=== PATIENT | male | born 1985 | race Caucasian/White ===

== ENCOUNTER 2018-01-11 16:04 | Emergency (ER) | payer OTHER ==
[2018-01-11 16:27] VITALS: BP 127/66; PULSE 77; RESP 18; TEMP 99
--- NOTE | 2018-01-11 16:43 | XR ---
EXAMINATION TYPE: XR ankle complete RT DATE OF EXAM: 01/11/2018 CLINICAL HISTORY: Lateral right ankle pain and swelling after the patient rolled his ankle. TECHNIQUE: Frontal, lateral and oblique images of the right ankle are obtained. COMPARISON: None. FINDINGS: There is no acute fracture/dislocation evident in the right ankle. The ankle mortise appe ars within normal limits. There is focal soft tissue swelling overlying the lateral malleolus. Small anterior enthesophyte is noted. IMPRESSION: Prominent soft tissue swelling over the lateral right malleolus with no evidence of acute fracture or dislocation. If there is persistent pain MRI could be performed to evaluate for tendon a nd ligamentous injury.
[2018-01-11] MEDS ORDERED: KETOROLAC 30 MG/ML 1 ML VIAL IM STA (17:45)
--- NOTE | 2018-01-11 17:48 | ED ---
General Adult HPI - General Chief complaint: Extremity Injury, Lower Stated complaint: Ankle Injury Time Seen by Provider: 01/11/18 17:40 Source: patient Mode of arrival: wheelchair Limitations: no limitations - History of Present Illness Initial comments: 32-year-old male presents to the emergency department for a chief complaint of right ankle pain. Patient states he was playing baseball when he slid and rolled his ankle. Patient states his pain is moderate. He has trouble bearing weight on the ankle. Patient denies pain in the foot or the knee. Patient has full range of motion of the foot and the knee. Patient denies hitting his head in this injury. Patient states he has not taken ibuprofen or anything to decrease the inflammation. - Related Data Previous Rx's Medication Instructions Recorded Ibuprofen [Motrin] 600 mg PO Q6HR PRN #30 tab 07/02/14 Acetaminophen-Codeine 300-30mg 1 tab PO Q8H PRN #10 tablet 01/11/18 [Tylenol #3] Ibuprofen [Motrin] 800 mg PO Q8HR PRN #20 tab 01/11/18 Allergies Allergy/AdvReac Type Severity Reaction Status Date / Time No Known Allergies Allergy Verified 07/02/14 19:35 Review of Systems ROS Statement: Those systems with pertinent positive or pertinent negative responses have been documented in the HPI. ROS Other: All systems not noted in ROS Statement are negative. Past Medical History Past Medical History: No Reported History History of Any Multi-Drug Resistant Organisms: None Reported Past Surgical History: No Surgical Hx Reported Past Psychological History: No Psychological Hx Reported Smoking Status: Current every day smoker Past Alcohol Use History: None Reported, Occasional Past Drug Use History: None Reported General Exam Limitations: no limitations Head exam: Present: atraumatic, normocephalic, normal inspection Eye exam: Present: normal appearance, PERRL, EOMI. Absent: scleral icterus, conjunctival injection, periorbital swelling ENT exam: Present: normal exam, mucous membranes moist Respiratory exam: Present: normal lung sounds bilaterally. Absent: respiratory distress, wheezes, rales, rhonchi, stridor Cardiovascular Exam: Present: regular rate, normal rhythm, normal heart sounds. Absent: systolic murmur, diastolic murmur, rubs, gallop, clicks Extremities exam: Present: normal capillary refill, other (Pedal pulses 2+ in the right ankle). Absent: full ROM (Limited range of motion of right ankle), tenderness (Tenderness to the right ankle), pedal edema, joint swelling, calf tenderness Course Vital Signs 01/11/18 16:24 Temperature 99.0 F Pulse Rate 77 Respiratory 18 Rate Blood Pressure 127/66 O2 Sat by Pulse 98 Oximetry Medical Decision Making - Medical Decision Making 32-year-old male presents to the emergency department with a chief complaint of right ankle injury. Patient states he rolled his ankle while he was playing softball. Patient is now having trouble bearing weight on the ankle. He has 2 + pedal pulses and less than 2 second capillary refill in the right extremity. He states he can deal sensation in the right foot and denies pain in the knee or foot. X-ray was ordered which showed no acute fracture or dislocation ankle Gabriela's appears within normal limits. There is soft tissue swelling overlying the lateral malleolus. Radiologist recommends MRI if pain is persistent to evaluate for tendon or ligament injury. Patient will be given a shot of Toradol in the emergency department to decrease inflammation. He is directed to take ibuprofen for pain relief and anti-inflammatory effects. He will wait till tomorrow to start ibuprofen due to the administration of Toradol. He will be prescribed a prescription of Tylenol 3 if pain is severe and ibuprofen is not helping. Patient will be directed to follow-up with orthopedics in one to 2 days. Patient also requests ibuprofen 800s as his states "it will hurt his stomach less than taking four 200s." Patient is also educated about [place]. Disposition Clinical Impression: Ankle pain Disposition: HOME SELF-CARE Condition: Good Instructions: Ankle Sprain (ED) Additional Instructions: Please return to the emergency department if pain or symptoms worsen. Please follow-up with orthopedics in one to 2 days. Please take ibuprofen for pain relief and anti-inflammatory effects. Please use Tylenol 3 if pain is severe and ibuprofen isn't helping. Prescriptions: Acetaminophen-Codeine 300-30mg [Tylenol #3] 1 tab PO Q8H PRN #10 tablet PRN Reason: Pain Ibuprofen [Motrin] 800 mg PO Q8HR PRN #20 tab PRN Reason: Pain Referrals: None,Stated [Primary Care Provider] - 1-2 days Елена Pandya, PAC [PHYSICIAN ALGOLOGY TEACHER] - 1-2 days Time of Disposition: 17:48
== END 2018-01-11 18:06 | disposition home or self-care (01) ==
LOC: EC 16:04
DX: M25.571 Pain in right ankle and joints of right foot (principal); F17.200 Nicotine dependence, unspecified, uncomplicated; X50.9XXA Other and unspecified overexertion or strenuous movements or postures, initial encounter; Y93.64 Activity, baseball
CPT/HCPCS: 73610; 99283; 96372; J1885

== ENCOUNTER 2018-06-05 06:56 | Emergency (ER) | payer OTHER ==
[2018-06-05 07:08] VITALS: BP 134/78; PULSE 95; RESP 18; TEMP 98.2
[2018-06-05] MEDS ORDERED: KETOROLAC 60 MG/2 ML VIAL IM STA (07:17)
[2018-06-05] MEDS ORDERED: ORPHENADRINE 30 MG/ML 2 ML VIAL IM STA (07:17)
--- NOTE | 2018-06-05 07:22 | ED ---
General Adult HPI - General Chief complaint: Back Pain/Injury Stated complaint: LT side injury Time Seen by Provider: 06/05/18 07:00 Source: patient, RN notes reviewed Mode of arrival: ambulatory Limitations: no limitations - History of Present Illness Initial comments: This is a 33-year-old male who presents emergency Department complaining of back pain. Patient states he started having pain after he lifted a 20 pound gear work and move the wrong way. Patient states it's on the left mid back lateral of the spine. Patient denies any numbness weakness. Patient states when he sits still it does not hurt but when he moves or twists it hurts. Patient states pain is also reproducible with pressure. Patient denies any direct blow or trauma to the area. Patient denies any swelling redness or rashes. Patient denies any recent fever chills - Related Data Previous Rx's Medication Instructions Recorded Ibuprofen [Motrin] 600 mg PO Q6HR PRN #30 tab 07/02/14 Acetaminophen-Codeine 300-30mg 1 tab PO Q8H PRN #10 tablet 01/11/18 [Tylenol #3] Ibuprofen [Motrin] 800 mg PO Q8HR PRN #20 tab 01/11/18 Cyclobenzaprine [Flexeril] 10 mg PO TID #20 tab 06/05/18 Ibuprofen [Motrin] 600 mg PO Q6HR PRN #20 tab 06/05/18 Allergies Allergy/AdvReac Type Severity Reaction Status Date / Time No Known Allergies Allergy Verified 06/05/18 07:08 Review of Systems ROS Statement: Those systems with pertinent positive or pertinent negative responses have been documented in the HPI. ROS Other: All systems not noted in ROS Statement are negative. Past Medical History Past Medical History: No Reported History History of Any Multi-Drug Resistant Organisms: None Reported Past Surgical History: No Surgical Hx Reported Past Psychological History: No Psychological Hx Reported Smoking Status: Current every day smoker Past Alcohol Use History: Occasional Past Drug Use History: None Reported General Exam - General Exam Comments Initial Comments: GENERAL: Patient is well-developed and well-nourished. Patient is nontoxic and well- hydrated and is in mild distress. ENT: Neck is soft and supple. No significant lymphadenopathy is noted. Oropharynx is clear. Moist mucous membranes. Neck has full range of motion without eliciting any pain. EYES: The sclera were anicteric and conjunctiva were pink and moist. Extraocular movements were intact and pupils were equal round and reactive to light. Eyelids were unremarkable. PULMONARY: Unlabored respirations. Good breath sounds bilaterally. No audible rales rhonchi or wheezing was noted. CARDIOVASCULAR: There is a regular rate and rhythm without any murmurs gallops or rubs. SKIN: Skin is clear with no lesions or rashes and otherwise unremarkable. NEUROLOGIC: Patient is alert and oriented x3. Cranial nerves II through XII are grossly intact. Motor and sensory are also intact. Normal speech, volume and content. Symmetrical smile. MUSCULOSKELETAL: Normal extremities with adequate strength and full range of motion. Patient has tenderness just lateral to the spine on the left in the muscular region of the latissimus dorsi. PSYCHIATRIC: Normal psychiatric evaluation. Normal interpersonal interactions appears functionally intact in deals appropriately with others. No signs of depression. No signs of anxiety. Limitations: no limitations Course Vital Signs 06/05/18 07:06 Temperature 98.2 F Pulse Rate 95 Respiratory 18 Rate Blood Pressure 134/78 O2 Sat by Pulse 99 Oximetry Disposition Clinical Impression: Mid back pain Disposition: HOME SELF-CARE Condition: Good Instructions: Back Pain (ED) Prescriptions: Cyclobenzaprine [Flexeril] 10 mg PO TID #20 tab Ibuprofen [Motrin] 600 mg PO Q6HR PRN #20 tab PRN Reason: For pain Is patient prescribed a controlled substance at d/c from ED?: No Referrals: Mukesh Morin MD [Primary Care Provider] - 1-2 days Time of Disposition: 07:21
== END 2018-06-05 07:41 | disposition home or self-care (01) ==
LOC: EC 06:56
DX: M54.9 Dorsalgia, unspecified (principal); F17.200 Nicotine dependence, unspecified, uncomplicated
CPT/HCPCS: 99283; 96372 ×2; J2360; J1885

== ENCOUNTER 2018-07-08 06:53 | Emergency (ER) | payer OTHER ==
[2018-07-08 07:03] VITALS: RESP 18
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
[2018-07-08 07:55] LABS: Appearance,Urine Clear (Clear); Basophils % (A) 0 %; Bilirubin,Urine Negative (Negative); Blood,Urine Negative (Negative); Color,Urine Light Yellow; Eosinophils # (A) 0.2 k/uL (0-0.7); Eosinophils % (A) 2 %; Glucose,Urine (UA) Negative (Negative); HGB 15.1 gm/dL (13.0-17.5); Ketones,Urine Negative (Negative); Leukocyte Esterase,Urine Negative (Negative); Lymphocytes # (A) 2.3 k/uL (1.0-4.8); Lymphocytes % (A) 31 %; MCH 29.8 pg (25.0-35.0); MCHC 31.5 g/dL (31.0-37.0); MCV 94.7 fL (80.0-100.0); Mean Platelet Volume 6.9; Monocytes # (A) 0.5 k/uL (0-1.0); Monocytes % (A) 7 %; Neutrophils # (A) 4.3 k/uL (1.3-7.7); Neutrophils % (A) 58 %; Nitrite,Urine Negative (Negative); Platelet Count 250 k/uL (150-450); Protein,Urine Negative (Negative); RBC 5.07 m/uL (4.30-5.90); RDW 13.2 % (11.5-15.5); Specific Gravity,Urine 1.004 (1.001-1.035); Urobilinogen,Urine <2.0 mg/dL (<2.0); WBC 7.4 k/uL (3.8-10.6)
[2018-07-08 08:03] LABS: ALT 22 U/L (21-72); AST 26 U/L (17-59); Albumin 4.7 g/dL (3.5-5.0); Alkaline Phosphatase 64 U/L (38-126); Anion Gap 8 mmol/L; Blood Urea Nitrogen 10 mg/dL (9-20); Calcium 9.7 mg/dL (8.4-10.2); Carbon Dioxide 30 mmol/L (22-30); Chloride 104 mmol/L (98-107); Glucose 85 mg/dL (74-99); Lipase 83 U/L (23-300); Potassium 4.1 mmol/L (3.5-5.1); Sodium 142 mmol/L (137-145); Total Bilirubin 0.4 mg/dL (0.2-1.3); Total Protein 7.8 g/dL (6.3-8.2)
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
[2018-07-08 08:37] VITALS: TEMP 98.4
[2018-07-08] MEDS ORDERED: LIDOCAINE 2% GEL 30 ML TUBE TOPICAL ONE (08:45)
[2018-07-08] MEDS ORDERED: LIDOCAINE 5% PATCH TOPICAL SCH (10:00)
[2018-07-08 10:25] VITALS: BP 136/76; PULSE 66
== END 2018-07-08 10:22 | disposition home or self-care (01) ==
LOC: EC 06:53
DX: S20.212A Contusion of left front wall of thorax, initial encounter (principal); S00.12XA Contusion of left eyelid and periocular area, initial encounter; F17.200 Nicotine dependence, unspecified, uncomplicated; V49.49XA Driver injured in collision with other motor vehicles in traffic accident, initial encounter; Y92.410 Unspecified street and highway as the place of occurrence of the external cause
CPT/HCPCS: 36415; 70450; 71046; 72125; 80053; 81003; 83690; 85025; 99284

== ENCOUNTER → 2019-01-25 | Outpatient (CLI) | payer OTHER ==
--- NOTE | 2019-01-25 09:59 | XR ---
EXAMINATION TYPE: XR cervical spine comp DATE OF EXAM: 01/25/2019 TECHNIQUE: Frontal, lateral, oblique, and open mouth view of the cervical spine are obtained. HISTORY: M54.2 cervical spine pain COMPARISON: CT cervical spine July 08, 2018 FINDINGS: The cervical spine is visualized in its entirety from C1 thru the top of T1 level, it is s atisfactory in alignment without evidence of acute fracture or dislocation. The pre-vertebral soft t issue appears within normal limits. The C1-C2 articulation is within normal limits on the open mouth view. Vertebral body heights and disc space heights are maintained. Mild anterior spurring C5-C6 le tobin is present. The oblique images are within normal limits. The overlying soft tissue is unremarkabl e. IMPRESSION: Stable mild anterior spurring C5-C6 level.
== END | disposition home or self-care (01) ==
LOC: RADXRMAIN 09:30
PROVIDERS: ATTEND Internal Medicine
DX: M46.02 Spinal enthesopathy, cervical region (principal)
CPT/HCPCS: 72050

== ENCOUNTER 2019-12-04 02:22 | Emergency (ER) | payer OTHER ==
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
--- NOTE | 2019-12-04 03:22 | XR ---
EXAMINATION TYPE: XR chest 2V DATE OF EXAM: 12/04/2019 COMPARISON: NONE HISTORY: Rib pain TECHNIQUE: FINDINGS: Heart and mediastinum are normal. Lungs are clear. Diaphragm is normal. Bony thorax appears intact. IMPRESSION: Normal chest. No change.
[2019-12-04 03:48] LABS: Basophils % (A) 1 %; Eosinophils # (A) 0.2 k/uL (0-0.7); Eosinophils % (A) 2 %; HCT 44.1 % (39.0-53.0); HGB 14.7 gm/dL (13.0-17.5); Lymphocytes # (A) 3.2 k/uL (1.0-4.8); Lymphocytes % (A) 32 %; MCH 30.5 pg (25.0-35.0); MCHC 33.4 g/dL (31.0-37.0); MCV 91.3 fL (80.0-100.0); Mean Platelet Volume 8.4; Monocytes # (A) 0.6 k/uL (0-1.0); Monocytes % (A) 6 %; Neutrophils # (A) 5.7 k/uL (1.3-7.7); Neutrophils % (A) 57 %; Platelet Count 236 k/uL (150-450); RBC 4.83 m/uL (4.30-5.90); RDW 12.6 % (11.5-15.5); WBC 9.9 k/uL (3.8-10.6)
[2019-12-04 03:59] LABS: D-Dimer 0.19 mg/L FEU (<0.60); INR 0.9 (<1.2); Partial Thromboplastin Time 24.3 sec (22.0-30.0); Prothrombin Time 9.6 sec (9.0-12.0)
[2019-12-04 04:00] LABS: ALT 78 U/L (4-49); AST 54 U/L (17-59); African American GFR (CKD) >90 (>60 ml/min/1.73 sqM); Albumin 4.6 g/dL (3.5-5.0); Alkaline Phosphatase 89 U/L (38-126); Anion Gap 8 mmol/L; Blood Urea Nitrogen 13 mg/dL (9-20); Calcium 9.6 mg/dL (8.4-10.2); Carbon Dioxide 26 mmol/L (22-30); Chloride 101 mmol/L (98-107); Glucose 124 mg/dL (74-99); Magnesium 2.3 mg/dL (1.6-2.3); Non-African American GFR(CKD) >90 (>60 ml/min/1.73 sqM); Potassium 3.8 mmol/L (3.5-5.1); Sodium 135 mmol/L (137-145); Total Bilirubin 0.5 mg/dL (0.2-1.3); Total Protein 7.6 g/dL (6.3-8.2)
[2019-12-04 05:15] VITALS: BP 126/64; PULSE 76; RESP 16; TEMP 97.9
== END 2019-12-04 05:15 | disposition home or self-care (01) ==
LOC: EC 02:22
DX: R07.89 Other chest pain (principal); F17.200 Nicotine dependence, unspecified, uncomplicated; F41.8 Other specified anxiety disorders; Z63.79 Other stressful life events affecting family and household; Z87.828 Personal history of other (healed) physical injury and trauma; Z82.49 Family history of ischemic heart disease and other diseases of the circulatory system
CPT/HCPCS: 36415; 71046; 80053; 83735; 84484; 85025; 85379; 85610; 85730; 93005; 99285

== ENCOUNTER → 2020-09-18 | Outpatient (CLI) | payer OTHER | END | disposition home or self-care (01) | LOC: LABWHC1 09:21 | PROVIDERS: ATTEND Internal Medicine | DX: Z53.9 Procedure and treatment not carried out, unspecified reason (principal) ==

== ENCOUNTER → 2020-09-20 | Outpatient (CLI) | payer OTHER ==
[2020-09-20 13:52] LABS: Basophils % (A) 0 %; Eosinophils # (A) 0.1 k/uL (0-0.7); Eosinophils % (A) 1 %; HCT 42.1 % (39.0-53.0); HGB 14.4 gm/dL (13.0-17.5); Lymphocytes # (A) 2.6 k/uL (1.0-4.8); Lymphocytes % (A) 31 %; MCHC 34.1 g/dL (31.0-37.0); Mean Platelet Volume 7.5; Monocytes # (A) 0.5 k/uL (0-1.0); Monocytes % (A) 5 %; Neutrophils # (A) 5.3 k/uL (1.3-7.7); Neutrophils % (A) 62 %; Platelet Count 218 k/uL (150-450); RBC 4.63 m/uL (4.30-5.90); RDW 12.7 % (11.5-15.5); WBC 8.6 k/uL (3.8-10.6)
[2020-09-20 19:16] LABS: Hepatitis A Antibody IgM Non-Reactive (Non-Reactive); Hepatitis B Core IgM Non-Reactive (Non-Reactive); Hepatitis B Surface Antigen Non-Reactive (Non-Reactive); Hepatitis C IgG Antibody Non-Reactive (Non-Reactive)
[2020-09-20 19:17] LABS: African American GFR (CKD) 99.6 (60.0-200.0); Albumin 4.3 g/dL (3.80-4.90); Albumin/Globulin Ratio 1.79 (1.60-3.17); Anion Gap 6.3 mmol/L (4.00-12.00); Calcium 9.8 mg/dL (8.7-10.3); Carbon Dioxide 30.7 mmol/L (21.6-31.8); Globulin 2.4 g/dL (1.6-3.3); Non-African American GFR(CKD) 85.9 (60.0-200.0); Potassium 3.9 mmol/L (3.5-5.5); Total Bilirubin 0.3 mg/dL (0.2-1.2); Total Protein 6.7 g/dL (6.2-8.2)
[2020-09-20 19:25] LABS: T4, Free (Free Thyroxine) 1.2 ng/dL (0.80-1.80)
[2020-09-20 22:05] LABS: Hemoglobin A1C 5.5 % (4.0-6.0)
== END | disposition home or self-care (01) ==
LOC: LABWHC1 12:53
PROVIDERS: ATTEND Physician Assistant
DX: R53.82 Chronic fatigue, unspecified (principal); R94.5 Abnormal results of liver function studies; R63.5 Abnormal weight gain; F17.200 Nicotine dependence, unspecified, uncomplicated
CPT/HCPCS: 36415; 80053; 80074; 83036; 84402; 84403; 84439; 84443; 84481; 85025